=== PATIENT | female | born 1960 | race African-American/Black ===

== ENCOUNTER 2019-01-25 08:58 | Emergency (ER) | payer MEDICAID, OTHER ==
[~2019-01-25] VITALS: Ht 167.6 cm; Wt 62.0 kg
[2019-01-25 11:12] VITALS: BP 154/72
[2019-01-25] MEDS ORDERED: KETOROLAC 30MG/ML VIAL IM ONE (11:15)
== END 2019-01-25 11:14 | disposition home or self-care (01) ==
LOC: ER 09:06
DX: M25.561 Pain in right knee (principal); I10 Essential (primary) hypertension; F17.200 Nicotine dependence, unspecified, uncomplicated; Z90.49 Acquired absence of other specified parts of digestive tract; Z90.710 Acquired absence of both cervix and uterus; Z95.1 Presence of aortocoronary bypass graft; W01.0XXA Fall on same level from slipping, tripping and stumbling without subsequent striking against object, initial encounter; Y93.89 Activity, other specified; Y92.89 Other specified places as the place of occurrence of the external cause; Y99.8 Other external cause status
CPT/HCPCS: 73562; 96372; 99283; J1885